=== PATIENT | female | born 1970 | race Caucasian/White ===

== ENCOUNTER → 2018-03-28 07:45 | Outpatient (CLI) | payer OTHER, SELFPAY ==
--- NOTE | 2018-03-28 07:47 | DI.RAD.S_ITS ---
PROCEDURE: XR CHEST 2V INDICATIONS: rt sided chest pain TECHNIQUE: 2 views of the chest were acquired. COMPARISON: None. FINDINGS: Surgical changes and devices: None. Lungs and pleura: No pleural effusions or pneumothorax. Lungs are clear. Mediastinum: Mediastinal contours are normal. Heart size is normal. Bones and chest wall: No suspicious bony abnormalities. Soft tissues appear unremarkable. IMPRESSION: No acute cardiopulmonary pathology. Dictated by: Kyree Pitts M.D. on 03/28/2018 at 11:37 Approved by: Kyree Pitts M.D. on 03/28/2018 at 11:37
[2018-03-28 08:42] LABS: Add Manual Diff / Slide Review NO; Eosinophils Percent Auto 5.7 % (2-4); Hematocrit 41.4 % (36-46); Hemoglobin 14.2 g/dL (12.0-16.0); Lymphocytes Percent Auto 26.7 % (25-40); Mean Corpuscular HGB Conc 34.2 % (30-36); Mean Corpuscular Hemoglobin 29.2 PG (26-34); Mean Corpuscular Volume 85.4 fL (80-100); Monocytes Percent Auto 6.2 % (3-14); Neutrophils Absolute Auto 4200 /uL (3000-5900); Neutrophils Percent Auto 60.4 % (50-75); Platelet Count 227 X10^3/uL (150-400); Red Blood Cell Count 4.84 X10^6/uL (4.0-5.2)
[2018-03-28 08:48] LABS: D Dimer 284 ng/mL (<230)
[2018-03-28 08:51] LABS: Alanine Aminotransferase 19 IU/L (9-52); Albumin Globulin Ratio 1.4 (1.0-2.8); Alkaline Phosphatase 60 U/L (38-126); Aspartate Aminotransferase 21 IU/L (14-36); Bilirubin Total 0.5 mg/dL (0.2-1.3); Blood Urea Nitrogen 16 mg/dL (7-17); Carbon Dioxide 27 mmol/L (22-32); Chloride 107 mmol/L (98-107); Cholesterol 219 mg/dL (140-199); Estimated Glomerular Filt Rate 58.9 mL/min (>60); Globulin 2.9 g/dL (1.7-4.1); Glucose 91 mg/dL (70-100); HDL Cholesterol 48 mg/dL (40-60); HEMOLYSIS < 15 (0-50); LDL Cholesterol Calculated 149 mg/dL (<100); Potassium 4.2 mmol/L (3.4-5.1); Sodium 142 mmol/L (137-145); Total Protein 6.9 g/dL (6.3-8.2); Triglycerides 111 mg/dL (35-150)
[2018-03-28 09:34] LABS: TSH w/ Reflex to FT4 2.63 uIU/mL (0.47-4.68)
== END ==
PROVIDERS: PCP Family Medicine; Visit Provider Family Medicine
DX: R06.02 Shortness of breath (principal); R07.81 Pleurodynia
CPT/HCPCS: 36415; 71046; 80053; 80061; 84443; 85025; 85379

== ENCOUNTER → 2018-05-26 12:20 | Outpatient (CLI) | payer OTHER, SELFPAY | PROVIDERS: PCP Family Medicine; Visit Provider Physician Assistant | DX: J02.9 Acute pharyngitis, unspecified (principal) | CPT/HCPCS: 87070 ==

== ENCOUNTER → 2020-10-14 14:40 | Outpatient (CLI) | payer OTHER, SELFPAY ==
--- NOTE | 2020-10-14 14:42 | DI.RAD.S_ITS ---
PROCEDURE: XR HIP W PEL IF DONE RT 2V INDICATIONS: rt hip pain TECHNIQUE: AP pelvis with lateral view(s) of the right hip(s). COMPARISON: None. FINDINGS: Bones: No fractures or dislocations. Pelvic ring appears intact. No suspicious bony lesions. Soft tissues: The visualized bowel gas pattern is normal. No suspicious soft tissue calcifications. IMPRESSION: No trauma, minimal hip joint osteoarthritis on the left and mild such degeneration on the right. Dictated by: Ruperto Ndiaye M.D. on 10/14/2020 at 15:29 Approved by: Ruperto Ndiaye M.D. on 10/14/2020 at 15:30
== END ==
PROVIDERS: PCP Family Medicine; Referring Provider Family Medicine; Visit Provider Family Medicine
DX: M25.551 Pain in right hip (principal)
CPT/HCPCS: 73502

== ENCOUNTER → 2024-07-24 08:38 | Outpatient (CLI) | payer OTHER, SELFPAY ==
[2024-07-24 09:50] LABS: Free T3, Triiodothyronine Free 2.92 pg/mL (2.77-5.27); Free T4, Direct Thyroxine 0.91 ng/dL (0.78-2.19)
[2024-07-24 10:03] LABS: Thyroid Stimulating Hormone 4.55 uIU/mL (0.47-4.68)
== END ==
LOC: LAB 08:43
PROVIDERS: PCP Family Medicine
DX: E03.8 Other specified hypothyroidism (principal)
CPT/HCPCS: 36415; 84439; 84443; 84481